=== PATIENT | female | born 1965 | race Caucasian/White ===

== ENCOUNTER 2017-11-14 09:16 | Emergency (ER) | payer BC ==
[2017-11-14 11:17] VITALS: BP 123/75
--- NOTE | 2017-11-14 11:41 | UC ---
HPI Febrile Illness - HPI Summary HPI Summary: 52 F with cough, flu like illness. pt fell ill suddenly yesterday afternoon. Fever, cold chills, body aches, chest congestion and severe cough. started about 22 hours ago and hit quick. 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 [ End ] - History of Current Complaint Chief Complaint: UCGeneralIllness Time Seen by Provider: 11/14/17 11:40 Hx Obtained From: Patient Onset/Duration: Started Days Ago - 1 Timing: Constant Initial Severity: Moderate Current Severity: Moderate Pain Intensity: 2 Aggravating Factors: Nothing Alleviating Factors: Nothing - Allergy/Home Medications Allergies/Adverse Reactions: Allergies Allergy/AdvReac Type Severity Reaction Status Date / Time MS Ciprofloxacin [From Cipro] Allergy Hives Verified 11/14/17 11:17 MS Latex [Latex] Allergy Swelling Verified 11/14/17 11:17 Of Face,Lips,& Throat MS Sulfa Antibiotics Allergy Vomiting Verified 11/14/17 11:17 [Sulfa Antibiotics] PMH/Surg Hx/FS Hx/Imm Hx Previously Healthy: Yes - Surgical History Surgical History: Yes Surgery Procedure, Year, and Place: csection x2. 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 Lives: With Family Alcohol Use: Rare Substance Use Type: None Smoking Status (MU): Heavy Every Day Tobacco Smoker Type: Cigarettes Amount Used/How Often: 1/2 ppd Review of Systems Constitutional: Fever, Chills, Fatigue Respiratory: Cough Musculoskeletal: Myalgia Neurological: Headache Is Patient Immunocompromised?: No All Other Systems Reviewed And Are Negative: Yes Physical Exam Triage Information Reviewed: Yes Appearance: Well-Appearing, No Pain Distress, Well-Nourished Vital Signs: Initial Vital Signs Temp 99.4 F 11/14/17 11:13 Pulse 67 11/14/17 11:13 Resp 16 11/14/17 11:13 BP 123/75 11/14/17 11:13 Pulse Ox 98 11/14/17 11:13 Vital Signs Reviewed: Yes Eye Exam: Normal ENT Exam: Normal Dental Exam: Normal Neck exam: Normal Neck: Positive: 1 Respiratory Exam: Normal Cardiovascular Exam: Normal Musculoskeletal Exam: Normal Neurological Exam: Normal Psychological Exam: Normal Skin Exam: Normal Course/Dx - Course Course Of Treatment: neg flu =-- viral uri - Diagnoses Clinic Provider Diagnoses: flu like illness/URI Discharge - Discharge Plan Condition: Good Disposition: HOME Patient Education Materials: Upper Respiratory Infection (ED) Forms: *Work Release Referrals: Kevan CASPERP,Josephine [Primary Care Provider] - 4 Days Additional Instructions: You had a negative flu test today. Your symptoms appear to be viral.
== END 2017-11-14 12:30 | disposition home or self-care (01) ==
LOC: UCCORT 09:16
DX: J11.1 Influenza due to unidentified influenza virus with other respiratory manifestations (principal); J06.9 Acute upper respiratory infection, unspecified; F17.210 Nicotine dependence, cigarettes, uncomplicated
CPT/HCPCS: 87502; 99201; G0463

== ENCOUNTER 2019-04-28 11:32 | Emergency (ER) | payer BC ==
[2019-04-28 12:53] VITALS: BP 119/72
--- NOTE | 2019-04-28 13:12 | UC ---
Skin Complaint HPI - HPI Summary HPI Summary: tick bite left arm x 1 day tick was removed by the pt. not sure how long the tick has been on her no fever, no chills, no joint pain , no rash - History of Current Complaint Chief Complaint: UCBiteInjury Time Seen by Provider: 04/28/19 12:39 Stated Complaint: SKIN Hx Obtained From: Patient Onset/Duration: Gradual Onset, Lasting Days - 1, Still Present Timing: Constant Onset Severity: Mild Current Severity: Mild Pain Intensity: 0 Location: Discrete - left arm Character: Pruritus Aggravating Factor(s): Nothing Alleviating Factor(s): Nothing Associated Signs & Symptoms: Positive: Negative. Negative: Fever, Chills, Tenderness Related History: Insect Bite/Sting - tick bite - Allergy/Home Medications Allergies/Adverse Reactions: Allergies Allergy/AdvReac Type Severity Reaction Status Date / Time MS Ciprofloxacin [From Cipro] Allergy Hives Verified 04/28/19 12:54 MS Latex [Latex] Allergy Swelling Verified 04/28/19 12:54 Of Face,Lips,& Throat MS Sulfa Antibiotics Allergy Vomiting Verified 04/28/19 12:54 [Sulfa Antibiotics] PMH/Surg Hx/FS Hx/Imm Hx Previously Healthy: Yes - Surgical History Surgical History: Yes Surgery Procedure, Year, and Place: csection x2. tonsillectomy - Family History Known Family History: Negative: Diabetes - Social History Alcohol Use: Rare Substance Use Type: None Smoking Status (MU): Heavy Every Day Tobacco Smoker Type: Cigarettes Amount Used/How Often: 1/2 ppd Review of Systems All Other Systems Reviewed And Are Negative: Yes Constitutional: Positive: Negative Skin: Positive: Negative Eyes: Positive: Negative ENT: Positive: Negative Respiratory: Positive: Negative Is Patient Immunocompromised?: No Physical Exam Triage Information Reviewed: Yes Appearance: Well-Appearing, No Pain Distress, Well-Nourished Vital Signs: Initial Vital Signs Temp 98.2 F 04/28/19 12:48 Pulse 61 04/28/19 12:48 Resp 16 04/28/19 12:48 BP 119/72 04/28/19 12:48 Pulse Ox 99 04/28/19 12:48 Vital Signs Reviewed: Yes Eye Exam: Normal Eyes: Positive: Conjunctiva Clear ENT: Positive: Normal ENT inspection, Hearing grossly normal, Pharynx normal Neck: Positive: Supple, Nontender, No Lymphadenopathy Respiratory: Positive: Chest non-tender, Lungs clear, Normal breath sounds Cardiovascular: Positive: RRR, No Murmur, Pulses Normal Abdominal Exam: Normal Skin: Positive: Other - small papular rash left arm Course/Dx - Diagnoses Provider Diagnosis: Tick bite Discharge - Sign-Out/Discharge Documenting (check all that apply): Patient Departure All imaging exams completed and their final reports reviewed: No Studies - Discharge Plan Condition: Stable Disposition: HOME Prescriptions: DOXYcycline CAP(*) [DOXYcycline 100MG CAP(*)] 200 mg PO DAILY #2 cap Patient Education Materials: Tick Bite (ED) Referrals: Kevan ROMERO LOG GETTERJosephine [Primary Care Provider] - If Needed - Billing Disposition and Condition Condition: STABLE Disposition: Home
== END 2019-04-28 13:22 | disposition home or self-care (01) ==
LOC: UCCORT 11:32
DX: S40.862A Insect bite (nonvenomous) of left upper arm, initial encounter (principal); W57.XXXA Bitten or stung by nonvenomous insect and other nonvenomous arthropods, initial encounter; Y92.9 Unspecified place or not applicable; F17.210 Nicotine dependence, cigarettes, uncomplicated
CPT/HCPCS: 99212; G0463